=== PATIENT | male | born 1975 | race Caucasian/White ===

== ENCOUNTER 2017-05-12 12:35 | Emergency (ER) | payer BC, MEDICAID ==
[2017-05-12] MEDS ORDERED: Sodium Chloride 0.9% 10 ML Syringe FLUSH PRN (12:46)
[2017-05-12 13:06] VITALS: BP 131/78
[2017-05-12] MEDS ORDERED: Ketorolac 30 MG/ML SDV IVPUSH ONE (13:07)
[2017-05-12 13:09] LABS: CHLORIDE,CL 103 mmol/L (98-107); SODIUM,NA 137 mmol/L (136-145)
[2017-05-12] MEDS ORDERED: Sodium Chloride 0.9% 1,000 ML IV ONE (13:15)
--- NOTE | 2017-05-12 13:25 | EDM.PDOC ---
ED HPI GENERAL MEDICAL PROBLEM - General Chief Complaint: Abdominal Pain Stated Complaint: abdominal pain Time Seen by Provider: 05/12/17 12:46 Source of Information: Reports: Patient, Family History Limitations: Reports: No Limitations - History of Present Illness INITIAL COMMENTS - FREE TEXT/NARRATIVE: Patient comes in by private vehicle with multiple complaints. Has had daily migraines for the last week. Usually has a migraine RUIZ once a month. Describes headaches as being bilateral, running from base of neck up both sides of head. One day saw spots but usually does not have an aura. Also complains of wiping blood away from rectum one time only. Did not have associated bowel movement with it. Denies hemorrhoid history. Resolved. No dark/ bloody stools. No history of GI bleed. Also complains of having left sided mid back/abdominal pain. Originally developed bilateral abdominal pain (upper) approx 4 days ago. The next day it was on the left side and has remained so since then. Says eating/drinking have no effect on the pain. Pain is worse when he is actively trying to lay down or sit up but is better once he fully laying down or sitting up. Pain is worse when he coughs. No change in pain with deep breath. Somewhat uncomfortable if he twists trunk around fully to left. Laying down on left side and putting pressure on left side makes it feel better. If he "pushes" to urinate or have a BM the pain worsens. Denies history of similar pain in past. No frequency or burning with urination. No hematuria. No nausea/emesis. No diarrhea. No specific complaint of constipation. Left Flank Pain Score (Numeric/FACES): 10 - Related Data Allergies Allergy/AdvReac Type Severity Reaction Status Date / Time Sulfa (Sulfonamide Allergy rash, Verified 05/12/17 12:56 Antibiotics) blisters Home Meds: Home Meds Cyclobenzaprine [Flexeril] 10 mg PO TID PRN #10 tablet 05/12/17 [Rx] predniSONE [Prednisone] 40 mg PO DAILY #10 tablet 05/12/17 [Rx] traMADol [Ultram] 50 mg PO Q6H PRN #10 tablet 05/12/17 [Rx] Past Medical History Neurological History: Reports: Migraines Endocrine/Metabolic History: Reports: Obesity/BMI 30+ Social & Family History - Tobacco Use Smoking Status *Q: Current Every Day Smoker - Alcohol Use Alcohol Use History: No ED ROS GENERAL - Review of Systems Review Of Systems: See Below Constitutional: Denies: Fever, Chills, Weakness, Fatigue, Night Sweats, Diaphoresis, Decreased Appetite, Weight Loss, Weight Gain HEENT: Reports: No Symptoms Respiratory: Reports: Cough (has chronic unchanged smoker's cough). Denies: Shortness of Breath, Wheezing, Pleuritic Chest Pain, Sputum, Hemoptysis Cardiovascular: Denies: Chest Pain, Dyspnea on Exertion, Edema, Lightheadedness , Orthopnea, Palpitations, Syncope GI/Abdominal: Reports: Abdominal Pain (see HPI for pattern), Other (single episode bright red blood per rectum per HPI. Unaccompanied by stool). Denies: Anorexia, Black Stool, Constipation, Diarrhea, Decreased Appetite, Difficulty Swallowing, Distension, Hematemesis, Hematochezia, Melena, Mucous in Stool, Nausea, Stool Incontinence, Vomiting : Reports: No Symptoms Musculoskeletal: Reports: Other (left mid back/flank/side pain) Skin: Reports: No Symptoms Neurological: Reports: Headache. Denies: Confusion, Dizziness, Numbness, Paresthesia, Seizure, Syncope, Tingling, Tremors, Trouble Speaking, Difficulty Walking, Weakness, Change in Speech, Gait Disturbance Psychiatric: Reports: No Symptoms Hematologic/Lymphatic: Reports: No Symptoms Immunologic: Reports: No Symptoms ED EXAM, GI/ABD - Physical Exam Exam: See Below Exam Limited By: No Limitations General Appearance: Alert, WD/WN, Moderate Distress Eyes: Bilateral: Normal Appearance, EOMI Ears: Normal External Exam, Other Nose: Normal Inspection Throat/Mouth: Normal Inspection, Normal Lips, Normal Voice, No Airway Compromise Head: Atraumatic, Normocephalic Neck: Normal Inspection, Supple, Non-Tender, Full Range of Motion. No: Lymphadenopathy (L), Lymphadenopathy (R) Respiratory/Chest: No Respiratory Distress, Lungs Clear, Normal Breath Sounds, No Accessory Muscle Use, Chest Non-Tender, Other (unable to trigger pain with palpation of posterior chest/side of chest) Cardiovascular: Normal Peripheral Pulses, Regular Rate, Rhythm, No Edema, No Murmur GI/Abdominal Exam: Soft, No Organomegaly, No Distention, No Mass, Tender (some tenderness noted RLQ as well as LUQ), Other (decreased bowel sounds) (Male) Exam: Deferred Rectal (Males) Exam: Normal Exam, Normal Rectal Tone, Prostate Normal, Heme - Stool Back Exam: No: CVA Tenderness (L), CVA Tenderness (R), Muscle Spasm, Paraspinal Tenderness, Vertebral Tenderness Extremities: Normal Inspection, Normal Range of Motion, Non-Tender, No Pedal Edema, Normal Capillary Refill Neurological: Alert, Oriented, Normal Cognition, Normal Gait, No Motor/Sensory Deficits Psychiatric: Anxious Skin Exam: Warm, Dry, Intact, Normal Color Course - Vital Signs Last Recorded V/S: Last Vital Signs Temp 37.1 C 05/12/17 13:05 Pulse 107 H 05/12/17 13:05 Resp 20 05/12/17 13:05 BP 131/78 05/12/17 13:05 Pulse Ox 97 05/12/17 13:05 - Orders/Labs/Meds Orders: Active Orders 24 hr Category Date Time Status Abdomen 2V AP Flat Upright [CR] Stat Exams 05/12/17 13:14 Taken Abdomen Pelvis w Cont [CT] Stat Exams 05/12/17 15:34 Taken Abdomen Pelvis wo Cont [CT] Stat Exams 05/12/17 13:44 Taken Chest w Cont [CT] Routine Exams 05/12/17 15:34 Taken Saline Lock Insert [OM.PC] Stat Oth 05/12/17 12:47 Ordered Labs: Laboratory Tests 05/12/17 05/12/17 05/12/17 Range/Units 12:50 12:50 12:50 WBC 9.1 (4.0-10.2) K/uL RBC 5.58 H (4.33-5.41) M/uL Hgb 16.7 (13.1-16.8) g/dL Hct 48.9 (39.0-49.0) % MCV 87.6 (84.0-98.0) fL MCH 29.9 (28.2-33.3) pg MCHC 34.2 (31.7-36.0) g/dL RDW 14.0 (11.2-14.1) % Plt Count 182 (150-350) K/uL Neut % (Auto) 63.9 (45.0-80.0) % Lymph % (Auto) 26.6 (10.0-50.0) % [place] % (Auto) 5.6 (2.0-14.0) % Eos % (Auto) 3.0 (0.0-5.0) % Baso % (Auto) 0.9 (0.0-2.0) % Neut # (Auto) 5.83 (1.40-7.00) K/uL Lymph # (Auto) 2.42 (0.50-3.50) K/uL [place] # (Auto) 0.51 (0.00-1.00) K/uL Eos # (Auto) 0.27 (0.00-0.50) K/uL Baso # (Auto) 0.08 (0.00-0.20) K/uL Sodium 137 (136-145) mmol/L Potassium 4.1 (3.5-5.1) mmol/L Chloride 103 (98-107) mmol/L Carbon Dioxide 21.8 (21.0-32.0) mmol/L BUN 22 H (7-18) mg/dL Creatinine 0.80 (0.51-1.17) mg/dL Est Cr Clr Drug Dosing TNP Estimated GFR (MDRD) > 60 mL/min Glucose 156 H (74-106) mg/dL Calcium 8.8 (8.5-10.1) mg/dL Total Bilirubin 0.2 (0.2-1.0) mg/dL AST 31 (15-37) U/L ALT 67 (12-78) U/L Alkaline Phosphatase 63 (46-116) IU/L Total Protein 8.0 (6.4-8.2) g/dL Albumin 4.0 (3.4-5.0) g/dL Amylase 45 (25-115) U/L Lipase 123 (73-393) U/L Specimen Type Urine Color Urine Appearance Urine pH (5.0-9.0) Ur Specific [place] (1.005-1.030) Urine Protein (NEGATIVE) mg/dL Urine Glucose (UA) (NEGATIVE) mg/dL Urine Ketones (NEGATIVE) mg/dL Urine Occult Blood (NEGATIVE) Urine Nitrite (NEGATIVE) Urine Bilirubin (NEGATIVE) Urine Urobilinogen (0.2-1.0) E.U./dL Ur Leukocyte Esterase (NEGATIVE) Urine RBC /HPF Urine WBC /HPF Ur Epithelial Cells /LPF Urine Bacteria (NONE TO FEW) /HPF 08/23/17 Range/Units 13:02 WBC (4.0-10.2) K/uL RBC (4.33-5.41) M/uL Hgb (13.1-16.8) g/dL Hct (39.0-49.0) % MCV (84.0-98.0) fL MCH (28.2-33.3) pg MCHC (31.7-36.0) g/dL RDW (11.2-14.1) % Plt Count (150-350) K/uL Neut % (Auto) (45.0-80.0) % Lymph % (Auto) (10.0-50.0) % [place] % (Auto) (2.0-14.0) % Eos % (Auto) (0.0-5.0) % Baso % (Auto) (0.0-2.0) % Neut # (Auto) (1.40-7.00) K/uL Lymph # (Auto) (0.50-3.50) K/uL [place] # (Auto) (0.00-1.00) K/uL Eos # (Auto) (0.00-0.50) K/uL Baso # (Auto) (0.00-0.20) K/uL Sodium (136-145) mmol/L Potassium (3.5-5.1) mmol/L Chloride (98-107) mmol/L Carbon Dioxide (21.0-32.0) mmol/L BUN (7-18) mg/dL Creatinine (0.51-1.17) mg/dL Est Cr Clr Drug Dosing Estimated GFR (MDRD) mL/min Glucose (74-106) mg/dL Calcium (8.5-10.1) mg/dL Total Bilirubin (0.2-1.0) mg/dL AST (15-37) U/L ALT (12-78) U/L Alkaline Phosphatase (46-116) IU/L Total Protein (6.4-8.2) g/dL Albumin (3.4-5.0) g/dL Amylase (25-115) U/L Lipase (73-393) U/L Specimen Type Urinvoid Urine Color Yellow Urine Appearance Clear Urine pH 5.5 (5.0-9.0) Ur Specific [place] >= 1.030 (1.005-1.030) Urine Protein Negative (NEGATIVE) mg/dL Urine Glucose (UA) Negative (NEGATIVE) mg/dL Urine Ketones Negative (NEGATIVE) mg/dL Urine Occult Blood Negative (NEGATIVE) Urine Nitrite Negative (NEGATIVE) Urine Bilirubin Negative (NEGATIVE) Urine Urobilinogen 0.2 (0.2-1.0) E.U./dL Ur Leukocyte Esterase Negative (NEGATIVE) Urine RBC 0-5 /HPF Urine WBC 0-5 /HPF Ur Epithelial Cells Not seen /LPF Urine Bacteria Not seen (NONE TO FEW) /HPF Meds: Medications Discontinued Medications Generic Name Dose Route Start Last Admin Trade Name Freq PRN Reason Stop Dose Admin Sodium Chloride 1,000 mls @ 999 mls/hr 05/12/17 13:15 05/12/17 13:31 Normal Saline IV 05/12/17 14:15 999 mls/hr .BOLUS ONE Administration Iopamidol 100 ml 05/12/17 15:48 05/12/17 17:01 Isovue-300 (61%) IVPUSH 05/12/17 15:49 100 ml ONETIME ONE Administration Ketorolac Tromethamine 30 mg 05/12/17 13:07 05/12/17 13:11 Toradol IVPUSH 05/12/17 13:08 30 mg ONETIME ONE Administration Morphine Sulfate 5 mg 05/12/17 13:44 05/12/17 14:10 Morphine IVPUSH 05/12/17 13:45 5 mg ONETIME ONE Administration Ondansetron HCl 4 mg 05/12/17 13:44 05/12/17 14:10 Zofran IVPUSH 05/12/17 13:45 4 mg ONETIME ONE Administration Sodium Chloride 10 ml 05/12/17 12:46 05/12/17 13:13 Saline Flush FLUSH 10 ml ASDIRECTED PRN Administration Keep Vein Open - Radiology Interpretation Free Text/Narrative:: Non-contrast CT of abdomen initially ordered. Negative for stones. Ultimately contrast CT of chest/abdomen ordered. Radiology did not find any acute changes. - Re-Assessments/Exams Free Text/Narrative Re-Assessment/Exam: 05/12/17 18:46 Patient complained of 10/10 pain. Anxious. Had hard time getting comfortable. Initially had noncontrast CT of abdomen and pelvis to r/o stone. Labs drawn. UA, CBC, Chem overall unremarkable. Toradol given. Patient continued to complain of 10/10 pain. Given the complex combination of symptoms, including him adding that he had somewhat similar symptoms during previous pleurisy episode, he eventually had chest/abdomen CT studies performed. Also given MS for pain. He appeared more comfortable after that pain medication. Less anxious. Additional CT studies reviewed by Radiology and no acute findings were noted. Negative for appendicitis/diverticulitis/acute lung changes. By this time patient's behavior was noticeably changed. Pain complaint improved. No longer anxious. Discussed differential with patient. At this time etiology of side pain/abdominal pain appears to be likely musculoskeletal in nature given the unremarkable workup. Recommended short term Prednisone as well as small amount of muscle relaxants/pain medications. He is to follow up with primary provider next week if symptoms have not resolved. He knows that he can follow up sooner if there are problems. Precautions reviewed prior to discharge. Patient given time to ask questions. He feels comfortable with the above plan. Uncertain as to cause of patient's single episode rectal bleeding. May have internal hemorrhoid. Heme - on exam tonight. He is to watch and see if that returns and should follow up with his primary provider. Departure - Departure Time of Disposition: 17:50 Disposition: Home, Self-Care 01 Condition: Good Clinical Impression: Abdominal pain of unknown cause - Discharge Information Prescriptions: Cyclobenzaprine [Flexeril] 10 mg PO TID PRN #10 tablet PRN Reason: Muscle Spasm predniSONE [Prednisone] 40 mg PO DAILY #10 tablet traMADol [Ultram] 50 mg PO Q6H PRN #10 tablet PRN Reason: Pain Referrals: PCP,None [Primary Care Provider] - Forms: ED Department Discharge Additional Instructions: See if symptoms improve over the next 4-5 days with the medications. If you have worsening problems, or develop chest pains, please return to the ER or clinic for re-evaluation. Otherwise follow up with your regular provider next week for recheck. - My Orders Last 24 Hours: My Active Orders 05/12/17 12:47 Saline Lock Insert [OM.PC] Stat 05/12/17 13:14 Abdomen 2V AP Flat Upright [CR] Stat 05/12/17 13:44 Abdomen Pelvis wo Cont [CT] Stat 05/12/17 15:34 Abdomen Pelvis w Cont [CT] Stat Chest w Cont [CT] Routine - Assessment/Plan Last 24 Hours: My Active Orders 05/12/17 12:47 Saline Lock Insert [OM.PC] Stat 05/12/17 13:14 Abdomen 2V AP Flat Upright [CR] Stat 05/12/17 13:44 Abdomen Pelvis wo Cont [CT] Stat 05/12/17 15:34 Abdomen Pelvis w Cont [CT] Stat Chest w Cont [CT] Routine
[2017-05-12] MEDS ORDERED: Morphine 10 MG/ML Syringe IVPUSH ONE (13:44)
[2017-05-12] MEDS ORDERED: Ondansetron 4 MG/2 ML SDV IVPUSH ONE (13:44)
[2017-05-12] MEDS ORDERED: Iopamidol 612 MG/ML 100 ML Bottle IVPUSH ONE (15:48)
== END 2017-05-12 17:57 | disposition home or self-care (01) ==
LOC: LL.ED 12:35
DX: R10.9 Unspecified abdominal pain (principal); F17.210 Nicotine dependence, cigarettes, uncomplicated; E66.9 Obesity, unspecified; Z88.2 Allergy status to sulfonamides; Z79.899 Other long term (current) drug therapy
CPT/HCPCS: 36415; 71260; 74020; 74176; 74177; 80053; 81001; 82150; 83690; 85025; 96361; 96374; 96375; 99284; J1885; J2270; J2405; J7030; J7050; Q9967

== ENCOUNTER 2017-07-02 20:20 | Emergency (ER) | payer BC, MEDICAID ==
[2017-07-02 20:41] VITALS: BP 144/86
[2017-07-02] MEDS ORDERED: HYDROmorphone 1 MG/ML Syringe IM ONE (21:10)
--- NOTE | 2017-07-02 21:19 | EDM.PDOC ---
ED HPI GENERAL MEDICAL PROBLEM - General Chief Complaint: Back Pain or Injury Stated Complaint: Low back pain Time Seen by Provider: 07/02/17 20:30 Source of Information: Reports: Patient ([birth year]38), Family History Limitations: Reports: No Limitations - History of Present Illness INITIAL COMMENTS - FREE TEXT/NARRATIVE: Patient is a 41-year-old who is seen today with chief complaint of lower back pain he still had pain for 12 years recently had to start working secondary to the fact that his has heart disease and anemia and concomitant to the house he also states that he has been seen by Dr. Beasley for his back pain and started him on steroid shots and at all times for home use with no relief at this time his MRI was reviewed which revealed L4-L5 narrowing of the forearm is patient appears to be in moderate to severe distress at this time. Onset: Other (Patient has had back pain for approximately 12 years started working approximately 10 days ago) Duration: Chronic Location: Reports: Back, Lower Extremity, Right (Pain radiating down the right leg) Quality: Reports: Same as Previous Episode, Throbbing Severity: Moderate Improves with: Reports: Heat Therapy Worsens with: Reports: Movement (Standing or walking) Context: Reports: Activity, Other Lower Back Pain Score (Numeric/FACES): 9 - Related Data Allergies Allergy/AdvReac Type Severity Reaction Status Date / Time Sulfa (Sulfonamide Allergy rash, Verified 07/02/17 20:21 Antibiotics) blisters Home Meds: Home Meds Cyclobenzaprine [Flexeril] 10 mg PO TID PRN #10 tablet 05/12/17 [Rx] Ibuprofen 6 tab PO ASDIRECTED 07/02/17 [History] Naproxen Sodium [Aleve] 4 tab PO BID 07/02/17 [History] Past Medical History Musculoskeletal History: Reports: Arthritis, Back Pain, Chronic, Other (See Below) Other Musculoskeletal History: 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 Social & Family History - Tobacco Use Smoking Status *Q: Current Every Day Smoker Years of Tobacco use: 33 Packs/Tins Daily: 1 - Caffeine Use Caffeine Use: Reports: Coffee - Recreational Drug Use Recreational Drug Use: No ED ROS GENERAL - Review of Systems Review Of Systems: See Below Constitutional: Reports: Other (Back pain) HEENT: Reports: No Symptoms Respiratory: Reports: No Symptoms Cardiovascular: Reports: No Symptoms Endocrine: Reports: No Symptoms GI/Abdominal: Reports: No Symptoms : Reports: No Symptoms Musculoskeletal: Reports: Back Pain, Leg Pain Skin: Reports: No Symptoms Neurological: Reports: No Symptoms Psychiatric: Reports: No Symptoms ED EXAM,LOWER BACK PAIN/INJURY - Physical Exam Exam: See Below Exam Limited By: No Limitations General Appearance: Alert, WD/WN, Moderate Distress Ears: Normal External Exam, Normal Canal, Hearing Grossly Normal, Normal TMs Nose: Normal Inspection, Normal Mucosa, No Blood Throat/Mouth: Normal Inspection, Normal Lips, Normal Teeth, Normal Gums, Normal Oropharynx, Normal Voice, No Airway Compromise Head: Atraumatic, Normocephalic Neck: Normal Inspection, Supple, Non-Tender, Full Range of Motion Respiratory/Chest: No Respiratory Distress Cardiovascular: Normal Peripheral Pulses, Regular Rate, Rhythm, No Edema, No Gallop, No JVD, No Murmur, No Rub GI/Abdominal: Normal Bowel Sounds, Soft, Non-Tender, No Organomegaly, No Distention, No Abnormal Bruit, No Mass (Male) Exam: No Hernia, Normal Inspection, Normal Prostate, Circumcised Rectal (Males) Exam: Deferred Back Exam: Full Range of Motion, Decreased Range of Motion, Paraspinal Tenderness Extremities: Limited Range of Motion, Other (Positive straight leg) Neurological: Alert, Normal Mood/Affect, Normal Dorsiflexion, No Motor/Sensory Deficits, Abnormal Gait Psychiatric: Anxious Skin Exam: Warm, Dry, Intact, Normal Color, No Rash Course - Vital Signs Last Recorded V/S: Last Vital Signs Temp 99.6 F 07/02/17 20:37 Pulse 98 07/02/17 20:37 Resp 16 07/02/17 20:37 BP 144/86 H 07/02/17 20:37 Pulse Ox 100 07/02/17 20:37 - Orders/Labs/Meds Meds: Medications Discontinued Medications Generic Name Dose Route Start Last Admin Trade Name Freq PRN Reason Stop Dose Admin Diazepam 10 mg 07/02/17 21:12 Valium IVPUSH 07/02/17 21:13 ONETIME ONE Hydromorphone HCl 1 mg 07/02/17 21:10 Dilaudid IM 07/02/17 21:11 ONETIME ONE Departure - Departure Time of Disposition: 22:09 Disposition: Home, Self-Care 01 Condition: Fair Clinical Impression: Chronic lower back pain - Discharge Information Referrals: Loree Palm MD [Primary Care Provider] - Care Plan Goals: ED HPI GENERAL MEDICAL PROBLEM - General Chief Complaint: Back Pain or Injury Stated Complaint: Low back pain Source of Information: Reports: Patient, Family History Limitations: Reports: No Limitations - History of Present Illness INITIAL COMMENTS - FREE TEXT/NARRATIVE: Patient is a 41-year-old who is seen today with chief complaint of lower back pain he still had pain for 12 years recently had to start working secondary to the fact that his has heart disease and anemia and concomitant to the house he also states that he has been seen by Dr. Beasley for his back pain and started him on steroid shots and at all times for home use with no relief at this time his MRI was reviewed which revealed L4-L5 narrowing of the forearm is patient appears to be in moderate to severe distress at this time. Onset: Other (Patient has had back pain for approximately 12 years started working approximately 10 days ago) Duration: Chronic Location: Reports: Back, Lower Extremity, Right (Pain radiating down the right leg) Quality: Reports: Same as Previous Episode, Throbbing Severity: Moderate Improves with: Reports: Heat Therapy Worsens with: Reports: Movement (Standing or walking) Context: Reports: Activity, Other Lower Back Pain Score (Numeric/FACES): 9 - Related Data Allergies Allergy/AdvReac Type Severity Reaction Status Date / Time Sulfa (Sulfonamide Allergy rash, Verified 07/02/17 20:21 Antibiotics) blisters Home Meds: Home Meds Cyclobenzaprine [Flexeril] 10 mg PO TID PRN #10 tablet 05/12/17 [Rx] Ibuprofen 6 tab PO ASDIRECTED 07/02/17 [History] Naproxen Sodium [Aleve] 4 tab PO BID 07/02/17 [History] Past Medical History Musculoskeletal History: Reports: Arthritis, Back Pain, Chronic, Other (See Below) Other Musculoskeletal History: 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 Social & Family History - Tobacco Use Smoking Status *Q: Current Every Day Smoker Years of Tobacco use: 33 Packs/Tins Daily: 1 - Caffeine Use Caffeine Use: Reports: Coffee - Recreational Drug Use Recreational Drug Use: No ED ROS GENERAL - Review of Systems Review Of Systems: See Below Constitutional: Reports: Other (Back pain) HEENT: Reports: No Symptoms Respiratory: Reports: No Symptoms Cardiovascular: Reports: No Symptoms Endocrine: Reports: No Symptoms GI/Abdominal: Reports: No Symptoms : Reports: No Symptoms Musculoskeletal: Reports: Back Pain, Leg Pain Skin: Reports: No Symptoms Neurological: Reports: No Symptoms Psychiatric: Reports: No Symptoms ED EXAM,LOWER BACK PAIN/INJURY - Physical Exam Exam: See Below Exam Limited By: No Limitations General Appearance: Alert, WD/WN, Moderate Distress Ears: Normal External Exam, Normal Canal, Hearing Grossly Normal, Normal TMs Nose: Normal Inspection, Normal Mucosa, No Blood Throat/Mouth: Normal Inspection, Normal Lips, Normal Teeth, Normal Gums, Normal Oropharynx, Normal Voice, No Airway Compromise Head: Atraumatic, Normocephalic Neck: Normal Inspection, Supple, Non-Tender, Full Range of Motion Respiratory/Chest: No Respiratory Distress Cardiovascular: Normal Peripheral Pulses, Regular Rate, Rhythm, No Edema, No Gallop, No JVD, No Murmur, No Rub GI/Abdominal: Normal Bowel Sounds, Soft, Non-Tender, No Organomegaly, No Distention, No Abnormal Bruit, No Mass (Male) Exam: No Hernia, Normal Inspection, Normal Prostate, Circumcised Rectal (Males) Exam: Deferred Back Exam: Full Range of Motion, Decreased Range of Motion, Paraspinal Tenderness Extremities: Limited Range of Motion, Other (Positive straight leg) Neurological: Alert, Normal Mood/Affect, Normal Dorsiflexion, No Motor/Sensory Deficits, Abnormal Gait Psychiatric: Anxious Skin Exam: Warm, Dry, Intact, Normal Color, No Rash Course - Vital Signs Last Recorded V/S: Last Vital Signs Temp 99.6 F 07/02/17 20:37 Pulse 98 07/02/17 20:37 Resp 16 10/13/17 20:37 BP 144/86 H 07/02/17 20:37 Pulse Ox 100 07/02/17 20:37 - Orders/Labs/Meds Meds: Medications Discontinued Medications Generic Name Dose Route Start Last Admin Trade Name Terri PRN Reason Stop Dose Admin Diazepam 10 mg 07/02/17 21:12 Valium IVPUSH 07/02/17 21:13 ONETIME ONE Hydromorphone HCl 1 mg 07/02/17 21:10 Dilaudid IM 07/02/17 21:11 ONETIME ONE Departure - Departure Time of Disposition: 22:09 Disposition: Home, Self-Care 01 Condition: Fair - Discharge Information Referrals: Loree Palm MD [Primary Care Provider] - Patient has degenerative joint disease of L4-L5 with narrowing of the foramina as per MRI done a couple days ago patient is in pain at this time we decided to treat it with Dilaudid 1 mg +10 of Valium which helped at this time we will send him home with hydrocodone 01/20/25 one tablet twice a day to help control the pain plus he should take the Ultram 50 mg 200 mg every 6 hours for pain plus his cyclobenzaprine 1 tablet 3 times a day at home he is to follow-up with on July 12 as instructed I explained to him the risks and benefits of the narcotics and that if he loses the prescription or he loses any of that note I will not refill it also explained the downside of narcotics that these really don't help on for the long -term. Understood and agreed
--- NOTE | 2017-07-02 22:32 | PCM.SN ---
- Free Text/Narrative Note: This is Dr. Nazario dictating on [facility] patient's 41-year-old who was seen with chief complaint of lower back pain at this time patient states that his back pain is chronic for the last 12 years she is disabled but started working again secondary to family situation where his is unable to work at this time secondary to heart disease at this time I explained to him that we rarely give narcotics in the ER his got ballistic force me saying that dating, here for narcotics and that I was belittling them I proceeded to examine the gentleman review his records at this time I noticed that he has severe narrowing in the back on MRI and could be in quite a lot of pain therefore I went ahead and gave him Valium 10 and Dilaudid 1 mg IM which seemed to help I went ahead and started him on hydrocodone with Tylenol 01/20/25 one tablet twice a day until he sees his pain specialist he is to follow with Dr. Spencer
== END 2017-07-02 22:30 | disposition home or self-care (01) ==
LOC: LL.ED 20:20
DX: G89.29 Other chronic pain (principal); M54.5 Low back pain; G43.909 Migraine, unspecified, not intractable, without status migrainosus; E66.9 Obesity, unspecified; F17.210 Nicotine dependence, cigarettes, uncomplicated; Z79.899 Other long term (current) drug therapy; Z88.2 Allergy status to sulfonamides
CPT/HCPCS: 96372; 99284; J1170; J3360

== ENCOUNTER 2019-08-18 16:52 | Emergency (ER) | payer MEDICAID, OTHER ==
[2019-08-18 17:10] VITALS: BP 116/77; PULSE 80
--- NOTE | 2019-08-18 17:10 | EDM.PDOC ---
ED HPI GENERAL MEDICAL PROBLEM - General Chief Complaint: General Stated Complaint: neck pain Time Seen by Provider: 08/18/19 17:00 Source of Information: Reports: Patient, Old Records ([facility] EMR. No paper hospital chart available.) History Limitations: Reports: No Limitations - History of Present Illness INITIAL COMMENTS - FREE TEXT/NARRATIVE: Patient drove himself to the emergency room via private automobile for evaluation of 04/29 cervical neck pain/ache, which comes in waves. Note the patient was helping his brother on 08/10 and 08/11 and had to lift shingles on his neck, however no history of an acute injury. He denies any history of paresthesias, neurological deficits, etc. despite his previous cervical surgery as below. Patient did take 1000 mg of Tylenol at about 14:00 hours today with ibuprofen also taken yesterday with little improvement. No recent history of abdominal pain, heartburn, nausea, diarrhea, melena, gross hematochezia, or any food intolerance, including fatty foods, etc.. The patient denies any chest pain /pressure, heart flutter, dizziness, orthostasis, orthopnea, diaphoresis, paresthesias, recent decreased exercise tolerance, or any other anginal-type symptoms. The patient also denies any recent fever, cough, wheezing, dyspnea, etc.. Onset: Gradual Onset Date: 08/10/19 Duration: Constant, Getting Worse Location: Reports: Neck. Denies: Head, Face, Chest, Abdomen, Back, Upper Extremity, Left, Upper Extremity, Right, Radiates to Quality: Reports: Ache, Same as Previous Episode Severity: Moderate Improves with: Reports: Rest Worsens with: Reports: Movement Context: Reports: Other (As above). Denies: Sick Contact, Trauma Associated Symptoms: Denies: Confusion, Chest Pain, Cough, Diaphoresis, Fever/ Chills, Headaches, Loss of Appetite, Malaise, Nausea/Vomiting, Shortness of Breath, Syncope, Weakness Treatments TOBACCO SWEEPER: Reports: Acetaminophen, NSAIDS neck Pain Score (Numeric/FACES): 8 - Related Data Allergies Allergy/AdvReac Type Severity Reaction Status Date / Time Sulfa (Sulfonamide Allergy rash, Verified 08/18/19 16:54 Antibiotics) blisters Home Meds: Home Meds Cyclobenzaprine [Flexeril] 10 mg PO TID PRN #30 tab 08/18/19 [Rx] Doxepin [SINEquan] 50 mg PO BEDTIME 08/18/19 [History] Omeprazole 20 mg PO BID 08/18/19 [History] atorvaSTATin [Lipitor] 20 mg PO DAILY 08/18/19 [History] Past Medical History HEENT History: Reports: None. Denies: Allergic Rhinitis, Cataract, Hard of Hearing, Impaired Vision, Otitis Media, Retinal Detachment, Sinusitis Cardiovascular History: Reports: High Cholesterol, Other (See Below). Denies: Afib, Aneurysm, Arrhythmia, Blood Clots/VTE/DVT, CAD, Heart Murmur, Hypertension , OR, Syncope Respiratory History: Reports: Asthma, Bronchitis, Recurrent, COPD, Intubation, Previous. Denies: Intubation, Difficult, PE, Pneumonia, Recurrent, Pneumothorax , Sleep Apnea, TB Gastrointestinal History: Reports: Gastritis, GERD, Helicobacter Pylori, Other ( See Below). Denies: Bowel Obstruction, Celiac Disease, Cholelithiasis, Chronic Constipation, Chronic Diarrhea, GI Bleed, Hepatitis, Inflammatory Bowel Disease , Irritable Bowel Syndrome, Jaundice, Pancreatitis, PUD Other Gastrointestinal History: Previously treated H. pylori infection in 2007. Benign splenic and hepatic granulomas by CT scan. Genitourinary History: Reports: Other (See Below). Denies: Acute Renal Failure , BPH, Chronic Renal Insuffiency, Renal Calculus, Retention, Urinary, STD, Urinary Incontinence, UTI, Recurrent Other Genitourinary History: Right renal cyst. Musculoskeletal History: Reports: Arthritis, Back Pain, Chronic, Neck Pain, Chronic, Osteoarthritis, Other (See Below). Denies: Fracture, Gout, RA, SLE Other Musculoskeletal History: Bilateral carpal tunnel syndrome. Degenerative arthritis to spine and pelvis. Neurological History: Reports: Headaches, Chronic, Migraines, Neuropathy, Peripheral, Other (See Below). Denies: Cerebral Aneurysms, Concussion, CVA, Head Trauma, MS, Parkinson's, Seizure, TIA Other Neuro History: Peripheral neuropathy prior to cervical fusion as above. Psychiatric History: Reports: Addiction, Anxiety, Depression, Other (See Below) . Denies: Abuse, Victim of, ADD, ADHD, Psych Hospitalization(s), PTSD, Suicide Attempt, Suicidal Ideation Other Psychiatric History: Illicit drug addiction as above between ages 15 and 19, however no IV use. Endocrine/Metabolic History: Reports: Diabetes, Type II, Obesity/BMI 30+. Denies: Diabetes, Type I, Diabetes Mellitus, Type 3c, Hypothyroidism, IDDM Other Endocrine/Metabolic History: AODM currently diet controlled. Hematologic History: Reports: None. Denies: Anemia, Blood Transfusion(s), Iron Deficiency Immunologic History: Reports: None. Denies: AIDS, HIV, SLE Oncologic (Cancer) History: Denies: Basal Cell Carcinoma, Hodgkin's Lymphoma, Leukemia, Lymphoma, Malignant Melanoma, Non-Hodgkin's Lymphoma, Squamous Cell Carcinoma Dermatologic History: Reports: None. Denies: Eczema, Psoriasis - Infectious Disease History Infectious Disease History: Reports: Chicken Pox, Helicobacter Pylori (As above) , Meningitis, MRSA (MRSA of the left knee as an infant as below.), Other (See Below). Denies: C-Difficile, Mumps, Pertussis (Whooping Cough), Rheumatic Fever , Rubella, Scarlet Fever, Shingles, TB Other Infectious Disease History: Possible meningitis at about age 7 requiring one month hospitalization. - Past Surgical History Head Surgeries/Procedures: Reports: None HEENT Surgical History: Reports: Naso-Sinus Surgery, Other (See Below). Denies : Adenoidectomy, Eye Surgery, Laser Surgery, LASIK, Myringotomy w Tube(s), Tonsillectomy Other HEENT Surgeries/Procedures: Severe sinus infection requiring surgery in 2006. Kemp teeth extraction 4 at age 34. Cardiovascular Surgical History: Reports: None. Denies: Varicose Respiratory Surgical History: Reports: None. Denies: Thoracentesis GI Surgical History: Reports: None. Denies: Appendectomy, Cholecystectomy, Colonoscopy, EGD, Hernia, Abdominal, Hernia, Inguinal, Hernia Repair/Other Male Surgical History: Reports: Circumcision, Other (See Below). Denies: Vasectomy Other Male Surgeries/Procedures: Circumcision as an infant. Neurological Surgical History: Reports: C-Spine, Spinal Fusion, Other (See Below ). Denies: Discectomy, Laminectomy, Lumbar Spine, Sacral Spine, Thoracic Spine Other Neurological Surgeries/Procedures: Spinal fusion C-spine in about 2009. Musculoskeletal Surgical History: Reports: Other (See Below). Denies: Arthroscopic Knee, Arthroscopic Procedure, Carpal Tunnel, Ganglion Cyst, Joint Replacement, ORIF, Shoulder Surgery Other Musculoskeletal Surgeries/Procedures:: Open debridement of MRSA infection of the left knee as an infant. Oncologic Surgical History: Reports: None Dermatological Surgical History: Reports: None. Denies: Plastic Surgical Reconstruction/Repair - Past Imaging History Past Imaging History: Reports: CAT Scan (CT of the lumbar spine on 10/15/17. MRI of the lumbar spine on 07/01/17. CT of the abdomen, pelvis, and chest on .) Social & Family History - Family History Family Medical History: Noncontributory - Tobacco Use Smoking Status *Q: Current Every Day Smoker Tobacco Use Within Last Twelve Months: Cigarettes Years of Tobacco use: 35 Packs/Tins Daily: 1 Packs/Tins Daily Comment: Started smoking at age 8 with average use of 12 packs per day and has not been smoking for the last 3 weeks. Used Tobacco, but Quit: Yes Smoking Cessation Information Provided To Patient: No Second Hand Smoke Exposure: No Second Hand Smoke Education Provided: No - Caffeine Use Caffeine Use: Reports: Coffee (13 cups per day). Denies: Energy Drinks, Soda, Tea - Alcohol Use Alcohol Use History: Yes Days Per Week of Alcohol Use: 0 Number of Drinks Per Day: 2 Number of Drinks Per Day Comment: Usually beer for holidays, etc. Total Drinks Per Week: 0 Alcohol Use in Last Twelve Months: Yes - Recreational Drug Use Recreational Drug Type: Reports: Amphetamines (Speed), Marijuana/Hashish ( Chewing ages 15 and 19), Methamphetamine, Other (see below). Denies: Cocaine, Heroin, Inhalants (Glues, Solvents, Aerosols), LSD (Acid), Oxycodone Other Recreational Drug Type: Illicit Drug abuse as above between ages 15 and 19 , however no treatment. - Living Situation & Occupation Living situation: Reports: (), Alone Occupation: Disabled (Secondary to his cervical and lumbar osteoarthritis with disability starting in 2010.) ED ROS GENERAL - Review of Systems Review Of Systems: Comprehensive ROS is negative, except as noted in HPI. ED EXAM, GENERAL - Physical Exam Exam: See Below Exam Limited By: No Limitations General Appearance: Alert, WD/WN, No Apparent Distress, Anxious (Mild) Neck: Supple, Non-Tender, Limited Range of Motion (Secondary to Some), Tender Lateral (Mild in mid to lower left cervical region with spasms in this area). No: Lymphadenopathy (L), Lymphadenopathy (R), Tender Midline, Thyromegaly Respiratory/Chest: No Respiratory Distress, Lungs Clear, Normal Breath Sounds, No Accessory Muscle Use, Chest Non-Tender. No: Pleural Rub, Retractions Cardiovascular: Normal Peripheral Pulses, Regular Rate, Rhythm, No Edema, No Gallop, No JVD, No Murmur, No Rub. No: Gallop/S3, Gallop/S4, Friction Rub Peripheral Pulses: 2+: Radial (L), Radial (R) GI/Abdominal: Normal Bowel Sounds, Soft, Non-Tender, No Organomegaly, No Distention, No Abnormal Bruit, No Mass, Pelvis Stable, Other (mildly obese). No : Guarding (Male) Exam: Deferred Rectal (Males) Exam: Deferred Back Exam: Normal Inspection, Full Range of Motion. No: CVA Tenderness (L), CVA Tenderness (R), Muscle Spasm Extremities: Normal Inspection, Normal Range of Motion, Non-Tender, No Pedal Edema, Normal Capillary Refill. No: Peter's Sign Neurological: Alert, Oriented, CN II-XII Intact, Normal Cognition, Normal Gait, No Motor/Sensory Deficits Psychiatric: Anxious (Mild). No: Depressed Mood Skin Exam: Warm, Dry, Intact, Normal Color, No Rash, Tattoo(s). No: Diaphoretic Lymphatic: No Adenopathy Course - Vital Signs Last Recorded V/S: Last Vital Signs Temp 36.5 C 08/18/19 17:03 Pulse 80 08/18/19 17:03 Resp 14 08/18/19 17:03 BP 116/77 08/18/19 17:03 Pulse Ox 98 08/18/19 17:03 Vital Signs - 24 hr 08/18/19 17:03 Temperature [ 36.5 C Oral] Pulse, 80 Peripheral [ Right Pulse Oximetry] Respiratory 14 Rate Blood Pressure 116/77 [Left Upper Arm ] O2 Sat by Pulse 98 Oximetry - Orders/Labs/Meds Orders: Active Orders 24 hr Category Date Time Status Obtain Past Medical Record [OM.PC] Routine Oth 08/18/19 17:10 Active Labs: None Meds: Medications Discontinued Medications Generic Name Dose Route Start Last Admin Trade Name Freq PRN Reason Stop Dose Admin Ketorolac Tromethamine 60 mg 08/18/19 17:11 Toradol IM 08/18/19 17:12 ONETIME ONE - Radiology Interpretation Free Text/Narrative:: None Departure - Departure Time of Disposition: 18:00 Disposition: Home, Self-Care 01 Condition: Good Clinical Impression: Peptic reflux disease, Mixed anxiety depressive disorder Osteoarthritis Qualifiers: Osteoarthritis location: multiple joints Osteoarthritis type: primary Qualified Code(s): M15.0 - Primary generalized (osteo)arthritis Asthma Qualifiers: Asthma severity: mild Asthma persistence: intermittent Asthma complication type : uncomplicated Qualified Code(s): J45.20 - Mild intermittent asthma, uncomplicated Hyperlipidemia Qualifiers: Hyperlipidemia type: unspecified Qualified Code(s): E78.5 - Hyperlipidemia, unspecified Diabetes mellitus Qualifiers: Diabetes mellitus type: type 2 Diabetes mellitus oil heaterman insulin use: without oil heaterman use Diabetes mellitus complication status: without complication Qualified Code(s): E11.9 - Type 2 diabetes mellitus without complications - Discharge Information *PRESCRIPTION DRUG MONITORING PROGRAM REVIEWED*: Not Applicable *COPY OF PRESCRIPTION DRUG MONITORING REPORT IN PATIENT IRENE: Not Applicable Prescriptions: Cyclobenzaprine [Flexeril] 10 mg PO TID PRN #30 tab PRN Reason: Spasms Instructions: Cervical Sprain, [id number] Referrals: Blanca Ramey PA-C [Primary Care Provider] - Forms: ED Department Discharge Additional Instructions: 1. Follow up with your regular provider in 10-14 days as needed, if symptoms persist. Bring these discharge instructions with you to that visit.. 2. Tylenol 650 mg by mouth every 4 hours and/or OTC ibuprofen 2-3 tabs by mouth every 6 hours with food as directed./needed. You may stagger these medications for 48-72 hours only, which essentially means that you are receiving a pain medication about every 2 hours. Next dose of ibuprofen in 6 hours as needed secondary to medications given in the emergency room 3. Sedation, dry mouth, and confusion precautions with Flexeril as discussed. 4. BenGay or equivalent, heating pad, and/or ice packs as directed. 5. Congratulations about trying to quit smoking. Do not resume as discussed. 6. Immediately after this visit verify that your cellular telephone's voicemail has been activated and is empty. Also verify that your home telephone 's answering machine is operating properly and has space to receive messages. Note that it is sometimes necessary for us to be able to contact you at a later date to discuss your medical care. 7. Please remember that we are ALWAYS here for you and want to answer any questions you may have. Feel free to call the hospital any time and we call you back WOODY. - Problem List & Annotations (1) Osteoarthritis SNOMED Code(s): 232228805 Code(s): M19.90 - UNSPECIFIED OSTEOARTHRITIS, UNSPECIFIED SITE Status: Chronic Priority: Medium Current Visit: Yes Annotation/Comment:: Cervical sprain as above. Note current disability secondary to his osteoarthritis. No neurological deficits. Symptomatic relief as per discharge instructions. Flexeril, emergency room prescription, provided with sedation, etc. precautions given. Qualifiers: Osteoarthritis location: multiple joints Osteoarthritis type: primary Qualified Code(s): M15.0 - Primary generalized (osteo)arthritis (2) Asthma SNOMED Code(s): 216658426 Code(s): J45.909 - UNSPECIFIED ASTHMA, UNCOMPLICATED Status: Acute Priority: Medium Current Visit: Yes Annotation/Comment:: No recent fever or bronchitic type symptoms. Qualifiers: Asthma severity: mild Asthma persistence: intermittent Asthma complication type: uncomplicated Qualified Code(s): J45.20 - Mild intermittent asthma, uncomplicated (3) Diabetes mellitus SNOMED Code(s): 23619680 Code(s): E11.9 - TYPE 2 DIABETES MELLITUS WITHOUT COMPLICATIONS Status: Chronic Priority: Medium Current Visit: Yes Annotation/Comment:: Currently diet controlled and closely watched by his regular provider with follow-up in 3 months by his history. Continue weight loss in moderation as before. Qualifiers: Diabetes mellitus type: type 2 Diabetes mellitus fpc insulin use: without oil heaterman use Diabetes mellitus complication status: without complication Qualified Code(s): E11.9 - Type 2 diabetes mellitus without complications (4) Hyperlipidemia SNOMED Code(s): 23351030 Code(s): E78.5 - HYPERLIPIDEMIA, UNSPECIFIED Status: Chronic Priority: Medium Current Visit: Yes Annotation/Comment:: Stable under current medical therapy by patient history. Qualifiers: Hyperlipidemia type: unspecified Qualified Code(s): E78.5 - Hyperlipidemia , unspecified (5) Mixed anxiety depressive disorder SNOMED Code(s): 040376955 Code(s): F41.8 - OTHER SPECIFIED ANXIETY DISORDERS Status: Chronic Priority: Medium Current Visit: Yes Annotation/Comment:: Stable with current medical therapy. Note previous history of distant illicit drug use. (6) Peptic reflux disease SNOMED Code(s): 919078038 Code(s): K21.9 - GASTRO-ESOPHAGEAL REFLUX DISEASE WITHOUT ESOPHAGITIS Status: Chronic Priority: Medium Current Visit: Yes Annotation/Comment:: Stable with current medical therapy with previously treated H. pylori infection as above. - Problem List Review Problem List Initiated/Reviewed/Updated: Yes - My Orders Last 24 Hours: My Active Orders 08/18/19 17:10 Obtain Past Medical Record [OM.PC] Routine - Assessment/Plan Last 24 Hours: My Active Orders 08/18/19 17:10 Obtain Past Medical Record [OM.PC] Routine Assessment:: As above Plan: As above. Extensive precautions were given to the patient, who is in agreement with the treatment plan. See Patient Instructions for further treatment and plan.
[2019-08-18] MEDS ORDERED: Ketorolac 60 MG/2 ML SDV IM ONE (17:11)
== END 2019-08-18 18:00 | disposition home or self-care (01) ==
LOC: LL.ED 16:52
DX: K21.9 Gastro-esophageal reflux disease without esophagitis (principal); F41.8 Other specified anxiety disorders; M15.0 Primary generalized (osteo)arthritis; J44.9 Chronic obstructive pulmonary disease, unspecified; E78.5 Hyperlipidemia, unspecified; E11.40 Type 2 diabetes mellitus with diabetic neuropathy, unspecified; F41.9 Anxiety disorder, unspecified; F32.9 Major depressive disorder, single episode, unspecified; E66.9 Obesity, unspecified; Z68.33 Body mass index [BMI] 33.0-33.9, adult; F17.210 Nicotine dependence, cigarettes, uncomplicated; Z79.899 Other long term (current) drug therapy
CPT/HCPCS: 96372; 99283; J1885

== ENCOUNTER 2020-06-15 18:39 | Emergency (ER) | payer MEDICAID ==
[2020-06-15 18:45] VITALS: BP 128/87; PULSE 87
--- NOTE | 2020-06-15 18:51 | EDM.PDOC ---
ED HPI GENERAL MEDICAL PROBLEM - General Chief Complaint: ENT Problem Stated Complaint: left eye blurry vision Time Seen by Provider: 06/15/20 18:44 Source of Information: Reports: Patient History Limitations: Reports: No Limitations - History of Present Illness INITIAL COMMENTS - FREE TEXT/NARRATIVE: Pt with blurry vision in left eye Has resolved Began about 45 minutes ago No previus hx/o same Does have RUIZ but RUIZ is also improving No other complaints Onset: Today, Sudden Duration: Minutes: Location: Reports: Head, Face Headache Pain Score (Numeric/FACES): 1 - Related Data Allergies Allergy/AdvReac Type Severity Reaction Status Date / Time Sulfa (Sulfonamide Allergy rash, Verified 08/18/19 16:54 Antibiotics) blisters Home Meds: Home Meds Cyclobenzaprine [Flexeril] 10 mg PO TID PRN #30 tab 08/18/19 [Rx] Doxepin [SINEquan] 50 mg PO BEDTIME 08/18/19 [History] Omeprazole 20 mg PO BID 08/18/19 [History] atorvaSTATin [Lipitor] 20 mg PO DAILY 08/18/19 [History] Past Medical History HEENT History: Reports: None. Denies: Allergic Rhinitis, Cataract, Hard of Hearing, Impaired Vision, Otitis Media, Retinal Detachment, Sinusitis Cardiovascular History: Reports: High Cholesterol, Other (See Below). Denies: Afib, Aneurysm, Arrhythmia, Blood Clots/VTE/DVT, CAD, Heart Murmur, Hypertension, [place], Syncope Respiratory History: Reports: Asthma, Bronchitis, Recurrent, COPD, Intubation, Previous. Denies: Intubation, Difficult, PE, Pneumonia, Recurrent, Pneumothorax, Sleep Apnea, TB Gastrointestinal History: Reports: Gastritis, GERD, Helicobacter Pylori, Other (See Below). Denies: Bowel Obstruction, Celiac Disease, Cholelithiasis, Chronic Constipation, Chronic Diarrhea, GI Bleed, Hepatitis, Inflammatory Bowel Disease, Irritable Bowel Syndrome, Jaundice, Pancreatitis, PUD Other Gastrointestinal History: Previously treated H. pylori infection in 2007. Benign splenic and hepatic granulomas by CT scan. Genitourinary History: Reports: Other (See Below). Denies: Acute Renal Failure, BPH, Chronic Renal Insuffiency, Renal Calculus, Retention, Urinary, STD, Urinary Incontinence, UTI, Recurrent Other Genitourinary History: Right renal cyst. Musculoskeletal History: Reports: Arthritis, Back Pain, Chronic, Neck Pain, Chronic, Osteoarthritis, Other (See Below). Denies: Fracture, Gout, RA, SLE Other Musculoskeletal History: Bilateral carpal tunnel syndrome. Degenerative arthritis to spine and pelvis. Neurological History: Reports: Headaches, Chronic, Migraines, Neuropathy, Peripheral, Other (See Below). Denies: Cerebral Aneurysms, Concussion, CVA, Head Trauma, MS, Parkinson's, Seizure, TIA Other Neuro History: Peripheral neuropathy prior to cervical fusion as above. Psychiatric History: Reports: Addiction, Anxiety, Depression, Other (See Below). Denies: Abuse, Victim of, ADD, ADHD, Psych Hospitalization(s), PTSD, Suicide Attempt, Suicidal Ideation Other Psychiatric History: Illicit drug addiction as above between ages 15 and 19, however no IV use. Endocrine/Metabolic History: Reports: Diabetes, Type II, Obesity/BMI 30+. Denies: Diabetes, Type I, Diabetes Mellitus, Type 3c, Hypothyroidism, IDDM Other Endocrine/Metabolic History: AODM currently diet controlled. Hematologic History: Reports: None. Denies: Anemia, Blood Transfusion(s), Iron Deficiency Immunologic History: Reports: None. Denies: AIDS, HIV, SLE Dermatologic History: Reports: None. Denies: Eczema, Psoriasis Other Dermatologic History: Staph infection and h/o MRSA - Infectious Disease History Infectious Disease History: Reports: Chicken Pox, Helicobacter Pylori (As above), Meningitis, MRSA (MRSA of the left knee as an infant as below.), Other (See Below). Denies: C-Difficile, Mumps, Pertussis (Whooping Cough), Rheumatic Fever, Rubella, Scarlet Fever, Shingles, TB Other Infectious Disease History: Possible meningitis at about age 7 requiring one month hospitalization. - Past Surgical History Head Surgeries/Procedures: Reports: None HEENT Surgical History: Reports: Naso-Sinus Surgery, Other (See Below). Denies: Adenoidectomy, Eye Surgery, Laser Surgery, LASIK, Myringotomy w Tube(s), Tonsillectomy Other HEENT Surgeries/Procedures: Severe sinus infection requiring surgery in 2006. Artemas teeth extraction 4 at age 34. Cardiovascular Surgical History: Reports: None. Denies: Varicose Respiratory Surgical History: Reports: None. Denies: Thoracentesis GI Surgical History: Reports: None. Denies: Appendectomy, Cholecystectomy, Colonoscopy, EGD, Hernia, Abdominal, Hernia, Inguinal, Hernia Repair/Other Male Surgical History: Reports: Circumcision, Other (See Below). Denies: Vasectomy Other Male Surgeries/Procedures: Circumcision as an infant. Neurological Surgical History: Reports: C-Spine, Spinal Fusion, Other (See Below). Denies: Discectomy, Laminectomy, Lumbar Spine, Sacral Spine, Thoracic Spine Other Neurological Surgeries/Procedures: Spinal fusion C-spine in about 2009. Musculoskeletal Surgical History: Reports: Other (See Below). Denies: Arthroscopic Knee, Arthroscopic Procedure, Carpal Tunnel, Ganglion Cyst, Joint Replacement, ORIF, Shoulder Surgery Other Musculoskeletal Surgeries/Procedures:: Open debridement of MRSA infection of the left knee as an . Oncologic Surgical History: Reports: None Dermatological Surgical History: Reports: None. Denies: Plastic Surgical Reconstruction/Repair - Past Imaging History Past Imaging History: Reports: CAT Scan (CT of the lumbar spine on 10/15/17. MRI of the lumbar spine on 07/01/17. CT of the abdomen, pelvis, and chest on 05/12/17.) Social & Family History - Family History Family Medical History: Noncontributory - Caffeine Use Caffeine Use: Reports: Coffee (13 cups per day). Denies: Energy Drinks, Soda, Tea - Living Situation & Occupation Living situation: Reports: (), Alone Occupation: Disabled (Secondary to his cervical and lumbar osteoarthritis with disability starting in 2010.) ED ROS GENERAL - Review of Systems Review Of Systems: See Below Constitutional: Reports: No Symptoms HEENT: Reports: Eye Pain Respiratory: Reports: No Symptoms Cardiovascular: Reports: No Symptoms Musculoskeletal: Reports: No Symptoms Neurological: Reports: Headache ED EXAM GENERAL W FULL EYE - Physical Exam Exam: See Below Exam Limited By: No Limitations Eye Exam: Bilateral Eye: EOMI, Normal Fundi, Normal Inspection, PERRL Eyelids: Bilateral: Normal Appearance Conjunctiva & Sclera: Bilateral: Normal Appearance Extraocular Movements: Bilateral: Intact Pupillary Size: Bilateral: 5 mm Pupillary Reaction: Bilateral: Brisk Nose: Normal Inspection Throat/Mouth: Normal Oropharynx Neck: Supple Cardiovascular: Regular Rate, Rhythm Neurological: Alert, Oriented, Normal Cognition, Normal Gait, No Motor/Sensory Deficits Course - Vital Signs Last Recorded V/S: Last Vital Signs Temp 98.5 F 09/26/20 18:41 Pulse 87 06/15/20 18:41 Resp 16 06/15/20 18:41 BP 128/87 06/15/20 18:41 Pulse Ox 99 06/15/20 18:41 - Re-Assessments/Exams Free Text/Narrative Re-Assessment/Exam: 06/15/20 18:50 Symptoms resolved in ER Departure - Departure Time of Disposition: 19:00 Disposition: Home, Self-Care 01 Clinical Impression: Blurry vision, left eye - Discharge Information *PRESCRIPTION DRUG MONITORING PROGRAM REVIEWED*: Not Applicable *COPY OF PRESCRIPTION DRUG MONITORING REPORT IN PATIENT IRENE: Not Applicable Instructions: Blurred Vision, Adult Referrals: Blanca Ramey PA-C [Primary Care Provider] - Additional Instructions: To ER if recurs Follow up in clinic Sepsis Event Note (ED) - Evaluation Sepsis Screening Result: No Definite Risk - Focused Exam Vital Signs: Vital Signs Temp Pulse Resp BP Pulse Ox 06/15/20 18:41 98.5 F 87 16 128/87 99
== END 2020-06-15 18:55 | disposition home or self-care (01) ==
LOC: LL.ED 18:39
DX: H53.8 Other visual disturbances (principal); E78.00 Pure hypercholesterolemia, unspecified; J44.9 Chronic obstructive pulmonary disease, unspecified; K21.9 Gastro-esophageal reflux disease without esophagitis; F41.9 Anxiety disorder, unspecified; F32.9 Major depressive disorder, single episode, unspecified; E11.9 Type 2 diabetes mellitus without complications; E66.9 Obesity, unspecified; Z88.2 Allergy status to sulfonamides; Z79.899 Other long term (current) drug therapy
CPT/HCPCS: 99282; 99283

== ENCOUNTER 2020-06-20 10:02 | Day surgery (SDC) | payer MEDICAID, OTHER ==
[~2020-06-20 10:02] MED LIST: Propofol 200 MG/20 ML SDV ONE
[2020-06-20] MEDS ORDERED: Lactated Ringers 1,000 ML IV SCH (10:15)
[2020-06-20] MEDS ORDERED: Sodium Chloride 0.9% 10 ML Syringe FLUSH PRN (10:15)
[2020-06-20] MEDS ORDERED: Lidocaine 2% 100 MG/5 ML Syringe IVPUSH ONE (11:20)
--- NOTE | 2020-06-20 11:56 | PCM.HPR ---
H & P Addendum review - H & P Addendum Review Date of Original H & P: 06/17/20 Date Reviewed: 06/20/20 Time Reviewed: 11:05 Patient was Examined: No Changes
--- NOTE | 2020-06-20 11:57 | PCM.OPNOTE ---
- General Post-Op/Procedure Note Date of Surgery/Procedure: 06/20/20 Operative Procedure(s): EGD & Colonoscopy Findings: Both Normal Pre Op Diagnosis: GERD; abd pain with change in bowel habits Post-Op Diagnosis: Same Anesthesia Technique: MAC Primary Surgeon: Duane Mckeon Complications: None Condition: Good
[2020-06-20 13:42] VITALS: BP 122/72; PULSE 77
--- NOTE | 2020-06-20 13:46 | OR ---
Date of Procedure: 06/20/2020 PREOPERATIVE DIAGNOSES: 1. Gastroesophageal reflux disease. 2. Abdominal pain with change in bowel habits. POSTOPERATIVE DIAGNOSES: 1. Normal esophagogastroduodenoscopy. 2. Normal colonoscopy. PROCEDURES: 1. EGD with biopsy. 2. Colonoscopy. ANESTHESIA: IV sedation. PROCEDURE IN DETAIL: The patient was brought to the procedure room where he was placed on his left side and IV sedation administered. Digital rectal exam was performed which was normal. Colonoscope was inserted and advanced to the level of the cecum without difficulty. Cecal position was confirmed by identifying the appendiceal lumen and the ileocecal valve. Prep was good with some thick liquid stool remaining in the cecum that was irrigated and suctioned. Cecal position was confirmed by identifying the appendiceal lumen and the ileocecal valve. Upon withdrawing the scope, the ascending, transverse, and descending colon were normal in appearance. Sigmoid colon and rectum were normal. Retroflexion was normal. Air was removed and the scope withdrawn. No etiology for the patient's pain was identified. Next, upper endoscopy was performed. Oral bite block was placed and the upper endoscope advanced into the esophagus under direct vision without difficulty. Vocal cords were viewed and were normal. The scope was advanced to the 3rd portion of the duodenum. Duodenum and pylorus appeared normal. Antrum and body of the stomach were normal. Retroflexion revealed a normal-appearing fundus. There was no hiatal hernia, strictures, erosions, or other abnormalities. The squamocolumnar junction was regular. I did 2 biopsies from the distal esophagus because of his symptoms. Air was removed from the stomach and the scope withdrawn. Patient tolerated the procedure well and returned to recovery in stable condition. I will have the patient follow up with Blanca Ramey next week for ongoing evaluation and review of biopsies. No abnormalities were seen on either scope today that would account for the patient's symptoms. ISAIAS KAM MD /[id number]
== END 2020-06-20 12:53 | disposition home or self-care (01) ==
LOC: LL.SDS 10:02
PROVIDERS: ATTEND Surgery
DX: K20.0 Eosinophilic esophagitis (principal); K21.9 Gastro-esophageal reflux disease without esophagitis; F41.9 Anxiety disorder, unspecified; F32.9 Major depressive disorder, single episode, unspecified; E66.9 Obesity, unspecified; J45.909 Unspecified asthma, uncomplicated; F17.200 Nicotine dependence, unspecified, uncomplicated; Z01.812 Encounter for preprocedural laboratory examination; Z20.828 Contact with and (suspected) exposure to other viral communicable diseases; Z79.899 Other long term (current) drug therapy; Z88.2 Allergy status to sulfonamides; Z88.8 Allergy status to other drugs, medicaments and biological substances; Z68.37 Body mass index [BMI] 37.0-37.9, adult
CPT/HCPCS: 00813; 82962; J2001; J2704; J7120; U0002

== ENCOUNTER 2025-05-15 12:40 | Emergency (ER) | payer SELFPAY ==
[2025-05-15 13:11] VITALS: BP 130/84
[2025-05-15 13:14] VITALS: PULSE 89
[2025-05-15 13:39] LABS: BASOPHILS ABSOLUTE AUTO 0.05 K/uL (0.00-0.20); BASOPHILS PERCENT AUTO 0.8 % (0.0-2.0); EOSINOPHILS ABSOLUTE AUTO 0.14 K/uL (0.00-0.50); EOSINOPHILS PERCENT AUTO 2.3 % (0.0-5.0); IMMATURE GRAN ABSOLUTE AUTO 0.02 10^3/uL (0.00-0.04); IMMATURE GRAN PERCENT AUTO 0.3 % (0.0-0.4); LYMPHOCYTES ABSOLUTE AUTO 1.44 K/uL (0.50-3.50); LYMPHOCYTES PERCENT AUTO 23.9 % (10.0-50.0); MONOCYTES ABSOLUTE AUTO 0.33 K/uL (0.00-1.00); MONOCYTES PERCENT AUTO 5.5 % (2.0-14.0); NEUTROPHILS ABSOLUTE AUTO 4.04 K/uL (1.40-7.00); NEUTROPHILS PERCENT AUTO 67.2 % (45.0-80.0); PLATELET COUNT,PLT 198 K/uL (150-350); RED BLOOD CELL COUNT 5.40 M/uL (4.33-5.41); RED CELL DISTRIBUTION WIDTH 12.8 % (11.2-14.1); WHITE BLOOD CELL COUNT,WBC 6.0 K/uL (4.0-10.2)
[2025-05-15 13:59] LABS: ALANINE AMINOTRANSFERASE,ALT 49 U/L (12-78); ASPARTATE AMNIOTRANSFERASE,AST 20 U/L (15-37); BILIRUBIN TOTAL 0.3 mg/dL (0.2-1.0); BLOOD UREA NITROGEN,BUN 23 mg/dL (7-18); CARBON DIOXIDE,CO2 29.8 mmol/L (21.0-32.0); CHLORIDE,CL 103 mmol/L (98-107); CREATININE 1.08 mg/dL (0.51-1.17); GLUCOSE RANDOM 167 mg/dL (70-99); POTASSIUM,K 4.3 mmol/L (3.5-5.1); PROTEIN TOTAL,TP 7.6 g/dL (6.4-8.2); SODIUM,NA 141 mmol/L (136-145)
[2025-05-15 14:00] LABS: ESTIMATED GFR 84 mL/min (>=60)
[2025-05-15 14:08] LABS: APPEARANCE,URINE CLOUDY (CLEAR); GLUCOSE,URINE 100 mg/dL (NEGATIVE); OCCULT BLOOD,URINE MODERATE (NEGATIVE)
[2025-05-17 13:47] LABS: C.TRACHOMATIS BY TMA Negative (Negative); N.GONORRHOEAE BY TMA Negative (Negative)
== END 2025-05-15 14:44 | disposition home or self-care (01) ==
LOC: LL.ED 12:40
DX: K62.5 Hemorrhage of anus and rectum (principal); R31.9 Hematuria, unspecified; E78.00 Pure hypercholesterolemia, unspecified; J44.89 Other specified chronic obstructive pulmonary disease; E11.9 Type 2 diabetes mellitus without complications; F17.200 Nicotine dependence, unspecified, uncomplicated; Z88.2 Allergy status to sulfonamides; Z88.8 Allergy status to other drugs, medicaments and biological substances; Z79.899 Other long term (current) drug therapy
CPT/HCPCS: 36415; 80053; 81001; 85025; 86592; 87389; 87491; 87591; 99283

== ENCOUNTER 2025-05-19 04:20 | Emergency (ER) | payer OTHER ==
[2025-05-19] MEDS ORDERED: Sodium Chloride 0.9% 10 ML Syringe FLUSH PRN (04:36)
[2025-05-19 04:52] LABS: BASOPHILS ABSOLUTE AUTO 0.04 K/uL (0.00-0.20); BASOPHILS PERCENT AUTO 0.7 % (0.0-2.0); EOSINOPHILS ABSOLUTE AUTO 0.14 K/uL (0.00-0.50); EOSINOPHILS PERCENT AUTO 2.3 % (0.0-5.0); IMMATURE GRAN ABSOLUTE AUTO 0.04 10^3/uL (0.00-0.04); IMMATURE GRAN PERCENT AUTO 0.7 % (0.0-0.4); LYMPHOCYTES ABSOLUTE AUTO 1.89 K/uL (0.50-3.50); LYMPHOCYTES PERCENT AUTO 31.7 % (10.0-50.0); MONOCYTES ABSOLUTE AUTO 0.38 K/uL (0.00-1.00); MONOCYTES PERCENT AUTO 6.4 % (2.0-14.0); NEUTROPHILS ABSOLUTE AUTO 3.48 K/uL (1.40-7.00); NEUTROPHILS PERCENT AUTO 58.2 % (45.0-80.0); PLATELET COUNT,PLT 170 K/uL (150-350); RED BLOOD CELL COUNT 5.40 M/uL (4.33-5.41); RED CELL DISTRIBUTION WIDTH 12.8 % (11.2-14.1); WHITE BLOOD CELL COUNT,WBC 6.0 K/uL (4.0-10.2)
[2025-05-19 05:08] LABS: ALANINE AMINOTRANSFERASE,ALT 58 U/L (12-78); ASPARTATE AMNIOTRANSFERASE,AST 29 U/L (15-37); BILIRUBIN TOTAL 0.3 mg/dL (0.2-1.0); BLOOD UREA NITROGEN,BUN 15 mg/dL (7-18); CARBON DIOXIDE,CO2 23.9 mmol/L (21.0-32.0); CHLORIDE,CL 105 mmol/L (98-107); CREATININE 0.75 mg/dL (0.51-1.17); ETHANOL BLOOD MEDICAL 0.121 g/dL (0.000-0.080); GLUCOSE RANDOM 142 mg/dL (70-99); POTASSIUM,K 4.0 mmol/L (3.5-5.1); PROTEIN TOTAL,TP 8.0 g/dL (6.4-8.2); SODIUM,NA 142 mmol/L (136-145)
[2025-05-19 05:09] LABS: ESTIMATED GFR 110 mL/min (>=60)
[2025-05-19 05:13] LABS: APPEARANCE,URINE CLEAR; GLUCOSE,URINE NEGATIVE (NEGATIVE); OCCULT BLOOD,URINE TRACE-LYSED (NEGATIVE)
[2025-05-19] MEDS ORDERED: Lactated Ringers 1,000 ML IV SCH (05:15)
[2025-05-19 05:21] LABS: AMPHETAMINES SCREEN, URINE NEGATIVE (NEGATIVE); COCAINE METABOLITES,URINE NEGATIVE (NEGATIVE); EDDP,URINE SCREEN NEGATIVE (NEGATIVE); METHAMPHETAMINES SCREEN, URINE NEGATIVE (NEGATIVE); TCA SCREEN,URINE NEGATIVE (NEGATIVE); THC SCREEN,URINE 50 NG/ML NEGATIVE (NEGATIVE)
[2025-05-19 05:24] LABS: BUPRENORPHINE SCREEN,URINE POSITIVE (NEGATIVE); OXYCODONE SCREEN,URINE NEGATIVE (NEGATIVE)
== END 2025-05-19 05:40 | disposition home or self-care (01) ==
LOC: LL.ED 04:20
DX: S16.1XXA Strain of muscle, fascia and tendon at neck level, initial encounter (principal); S00.01XA Abrasion of scalp, initial encounter; S50.312A Abrasion of left elbow, initial encounter; F10.129 Alcohol abuse with intoxication, unspecified; E78.00 Pure hypercholesterolemia, unspecified; J45.909 Unspecified asthma, uncomplicated; E11.9 Type 2 diabetes mellitus without complications; E66.9 Obesity, unspecified; Z88.2 Allergy status to sulfonamides; Z88.8 Allergy status to other drugs, medicaments and biological substances; Z79.899 Other long term (current) drug therapy; Y90.0 Blood alcohol level of less than 20 mg/100 ml; V49.49XA Driver injured in collision with other motor vehicles in traffic accident, initial encounter
CPT/HCPCS: 36415; 70450; 71045; 72125; 80053; 80305; 80307; 81001; 85025; 99284; J7120